=== PATIENT | male | born 1960 | race Caucasian/White ===

== ENCOUNTER 2016-06-02 08:49 | Day surgery (SDC) | payer OTHER ==
[2016-06-02] MEDS ORDERED: ceFAZolin 2 GM/50 ML 50 ML IV ONE (08:54)
[2016-06-02] MEDS ORDERED: LACTATED RINGERS 1,000 ML IV ONE (09:05)
[2016-06-02] MEDS ORDERED: BUPIVACAINE 0.25%-EPI 1:200000 PF 30 ML VIAL SUBQ ONE (10:48)
[2016-06-02] MEDS ORDERED: LIDOCAINE 1%-EPI 1:100000 20 ML MDV SUBQ ONE (10:48)
[2016-06-02] MEDS ORDERED: MIDAZOLAM 2 MG/2 ML VIAL IVP ONE (11:00)
[2016-06-02] MEDS ORDERED: DEXAMETHASONE 4 MG/ML VIAL IVP ONE (11:00)
[2016-06-02] MEDS ORDERED: fentaNYL 100 MCG/2 ML VIAL IVP ONE (11:00)
[2016-06-02] MEDS ORDERED: PROPOFOL 200 MG/20 ML VIAL IVP ONE (11:00)
[2016-06-02] MEDS ORDERED: KETOROLAC 30 MG/ML VIAL IVP ONE (11:00)
[2016-06-02] MEDS ORDERED: LIDOCAINE-PF 2% 10 ML AMP SUBQ ONE (11:00)
[2016-06-02] MEDS ORDERED: ONDANSETRON 4 MG/2 ML VIAL IVP ONE (11:00)
[2016-06-02] MEDS ORDERED: EPINEPHrine 1 MG/ML AMP IVP ONE ×2 (11:51)
[2016-06-02] MEDS ORDERED: oxyCOD/ACETAMIN 5 MG/325 MG TABLET PO ONE (14:16)
== END 2016-06-02 08:50 | disposition home or self-care (01) ==
PROC: 0RBJ4ZZ Excision of Right Shoulder Joint, Percutaneous Endoscopic Approach (ICD-10-PCS; principal; 2016-06-02 10:00)
PROC: 0LN80ZZ Release Left Hand Tendon, Open Approach (ICD-10-PCS; 2016-06-02 10:00)
PROC: 0LN70ZZ Release Right Hand Tendon, Open Approach (ICD-10-PCS; 2016-06-02 10:00)
DX: M19.011 Primary osteoarthritis, right shoulder (principal); M75.21 Bicipital tendinitis, right shoulder; M65.332 Trigger finger, left middle finger; M65.331 Trigger finger, right middle finger; I10 Essential (primary) hypertension; G47.30 Sleep apnea, unspecified; Z87.891 Personal history of nicotine dependence
CPT/HCPCS: 26055; 29822; 85025; A9270; J0690; J7120